=== PATIENT | male | born 1955 | race Asian ===

== ENCOUNTER 2017-12-11 07:09 | Day surgery (SDC) | payer OTHER ==
[2017-12-11] MEDS ORDERED: LIDOCAINE 4% SOLUTION 50 ML BTL (08:45)
[2017-12-11] MEDS ORDERED: MIDAZOLAM 1 MG/ML 2 ML INJ ×2 (09:21→09:22)
[2017-12-11] MEDS ORDERED: FENTAnyl 50 MCG/ML VIAL (09:22)
== END 2017-12-11 12:41 | disposition home or self-care (01) ==
LOC: GIL 07:09
DX: R19.4 Change in bowel habit (principal); K64.4 Residual hemorrhoidal skin tags; K29.70 Gastritis, unspecified, without bleeding; K21.0 Gastro-esophageal reflux disease with esophagitis; E11.9 Type 2 diabetes mellitus without complications; I10 Essential (primary) hypertension
CPT/HCPCS: 43239; 88305; 88312